=== PATIENT | female | born 1945 | race Caucasian/White ===

== ENCOUNTER → 2016-12-07 | Outpatient (CLI) | payer MEDICARE ==
--- NOTE | 2016-12-07 11:56 | RADIOLOGY REPORT PS360 ---
BONE DENSITOMETRY(HIP:LT SPINE COMPARISON: None HISTORY: Postmenopausal, Low calcium intake TECHNIQUE: DEXA scanning lumbar spine and hips FINDINGS: The average BMD lumbar spine L1-L4 is 1.299 g/sq cm and the T score is 1.0. The total BMD left hip is 0.740 g centimeters square with a T score of -2.1. Left femoral neck is 0.787 g/sq cm In the T score is -1.8. IMPRESSION: Normal study lumbar spine, mild osteopenia left hip, suggest a follow-up study in approximately 2 years
--- NOTE | 2016-12-10 14:32 | RADIOLOGY REPORT PS360 ---
DIG MAMM-SCREEN [facility] W/CAD CAD Screening COMPARISON: Digital mammograms 11/19/2013 and 12/04/2015 INDICATION: There is no personal or family history of breast cancer. There is been previous biopsy left breast. TECHNIQUE: Standard CC and MLO images were obtained. R2 CAD reviewed. FINDINGS: The breasts are composed primarily of fat. Minimal fibroglandular densities are seen in the subareolar regions. Again noted is a somewhat asymmetric area of increased fibroglandular density upper outer quadrant left breast. There is arterial calcination in each breast. There are few benign-appearing calcifications right breast. There is no suspicious lesion and there are no suspicious microcalcifications. IMPRESSION: Stable exam with no suspicious lesion seen recommend yearly follow-up BI-RADS CATEGORY: 2_Benign RECOMMENDED FOLLOWUP: 12M 12 MONTH FOLLOW-UP (A letter has been sent to the patient regarding results of the study.)
== END ==
LOC: RAD 11-26 10:00
DX: Z12.31 Encounter for screening mammogram for malignant neoplasm of breast (principal); M85.89 Other specified disorders of bone density and structure, multiple sites; Z13.820 Encounter for screening for osteoporosis